=== PATIENT | male | born 1970 | race Caucasian/White ===

== ENCOUNTER 2024-11-12 11:04 | Day surgery (SDC) | payer MEDICAID ==
[~2024-11-12 11:04] MED LIST: Sodium Chloride 0.9% 10 ML Syringe FLUSH PRN; Sodium Chloride 0.9% 10 ML Syringe FLUSH SCH
[2024-11-12] MEDS: Lactated Ringers 1,000 ML IV SCH (11:20)
[2024-11-12] MEDS ORDERED: Propofol 200 MG/20 ML SDV ONE ×2 (12:10→12:57)
== END 2024-11-12 14:00 | disposition home or self-care (01) ==
LOC: JD.SDS 11:04
PROVIDERS: ATTEND Surgery
DX: Z12.11 Encounter for screening for malignant neoplasm of colon (principal); R19.5 Other fecal abnormalities; Z80.0 Family history of malignant neoplasm of digestive organs; K57.30 Diverticulosis of large intestine without perforation or abscess without bleeding; K64.8 Other hemorrhoids; D12.0 Benign neoplasm of cecum; D12.3 Benign neoplasm of transverse colon; D12.5 Benign neoplasm of sigmoid colon; K62.1 Rectal polyp; J44.9 Chronic obstructive pulmonary disease, unspecified; I25.10 Atherosclerotic heart disease of native coronary artery without angina pectoris; E78.5 Hyperlipidemia, unspecified; Z88.8 Allergy status to other drugs, medicaments and biological substances; Z87.891 Personal history of nicotine dependence; Z79.899 Other long term (current) drug therapy
CPT/HCPCS: 45380; 45385; J2003; J2704; J7120; 00811